=== PATIENT | female | born 1970 | race African-American/Black ===

== ENCOUNTER 2018-03-07 13:01 | Inpatient (IN) | payer OTHER, SELFPAY ==
[2018-03-07] MEDS ORDERED: Succinylcholine Chloride 20 MG/ML 10 ml SYRINGE FS ONE (13:12)
[2018-03-07] MEDS ORDERED: Propofol 1,000 MG/100 ML VIAL IV ONE (13:18)
[2018-03-07 13:28] LABS: #Basophils 0.1 thou/uL (0.0-0.2); #Lymphocytes 2.7 thou/uL (1.20-3.40); #Monocytes 0.6 thou/uL (0.11-0.59); #Neutrophils 6.3 thou/uL (1.40-6.50); %Basophils 0.6 % (0.0-1.0); %Eosinophils 0.2 % (0.0-10.0); %Lymphocytes 27.7 % (21.0-51.0); %Neutrophils 65.4 % (42.0-75.0); Hemoglobin 15.5 g/dL (12.0-16.0); Mean Corpuscular HGB CONC 33.4 g/dL (32.0-36.0); Mean Corpuscular Hemoglobin 30.8 pg (27.0-31.0); Mean Corpuscular Volume 92.2 fL (78.0-98.0); Mean Platelet Volume 7.6 fL (7.4-10.4); Platelet Count 286 thou/uL (130-400); RBC Distribution Width 12.5 % (11.5-14.5); Red Blood Cell (RBC) Count 5.04 mill/uL (4.20-5.40); White Blood Cell (WBC) Count 9.7 thou/uL (4.8-10.8)
[2018-03-07 13:37] LABS: Actual Bicarbonate (HCO3a) 16.6 mEq/L (22-28); Base Excess (BEa) -5.9 mEq/L (-2.0 to +3.0); CO2 Tension 26.1 mmHg (35.0-45.0); Carboxyhemoglobin (COHb) 0.2 gm% (0.0-3.0); Hemoglobin (Hb) 15.5 g/dL (12.0-16.0); O2 Tension (PaO2) 410.8 mmHg (80.0-100.0); pH, Arterial 7.42 (7.35-7.45)
[2018-03-07] MEDS ORDERED: Fentanyl 100 MCG/2 ML VIAL ONE ×2 (13:37→13:45)
[2018-03-07 13:38] LABS: ALV-art Gradient -86.925 (0-20); Analyzer IN Cardio ER; Calcium, Ionized 1.2 mmol/L (1.12-1.30); Potassium - ABG Lab 4.8 mmol/L (3.70-5.30); Puncture Site LR
[2018-03-07] MEDS ORDERED: fentaNYL Citrate/PF 2,000 MCG in Sodium Chloride 0.9% 60 ML IV SCH ×2 (13:46→15:48)
[2018-03-07 13:54] LABS: ALT (SGPT) 20 U/L (8-55); AST (SGOT) 32 U/L (5-34); Acetaminophen Less than 6.0 mcg/mL (10.0-30.0); Albumin 4.5 g/dL (3.5-5.0); Alcohol Less than 10 mg/dL (Less than 10); Alkaline Phosphatase 82 U/L (40-150); Anion Gap 21 mmol/L (10-20); BUN (Urea Nitrogen) 20 mg/dL (7.0-18.7); Bilirubin, Total 0.7 mg/dL (0.2-1.2); CK (CPK) 208 U/L (29-168); Calc. Creatinine Clearance 0 mL/min (70-130); Carbon Dioxide 17 mmol/L (22-29); Chloride 107 mmol/L (98-107); Estimated GFR-MDRD 50; Glucose 131 mg/dL (70-105); Potassium 4.2 mmol/L (3.5-5.1); Protein, Total 8.5 g/dL (6.0-8.3); Salicylate Less than 8.0 mg/dL (15.0-30.0); Sodium 141 mmol/L (136-145)
--- NOTE | 2018-03-07 14:27 | RAD ---
PORTABLE AP CHEST X-RAY: 03/07/2018 HISTORY: Psychiatric evaluation. Altered mental status. The patient is current unresponsive. COMPARISON: None available. FINDINGS: Endotracheal tube is noted in place with the tip overlying the T5 vertebral body and above the level of the melia. A nasogastric tube is also noted in place, which courses into the upper abdomen, but the tip is not imaged. The cardiac silhouette and pulmonary vasculature are within normal limits. T he lungs are clear. The osseous structures are intact. IMPRESSION: 1. Endotracheal tube and nasogastric tube in place. 2. No acute cardiopulmonary process. POS: [facility]
[2018-03-07 14:28] LABS: Bilirubin Moderate (Negative); Blood, Urine Trace (Negative); Clarity CLOUDY (Clear); Glucose, Urine (Dipstick) Negative (Negative); Leukocyte Negative (Negative); Nitrite Negative (Negative); Protein, Urine (Dipstick) 100 mg/dL (Neg-Trace); Specific Gravity, Urine 1.034 (1.002-1.036); pH, Urine 5.5 (5.0-9.0)
[2018-03-07 14:30] LABS: Bacteria/HPF None Seen HPF (None Seen); RBC/HPF 0-3 HPF (0-3)
--- NOTE | 2018-03-07 14:31 | CT ---
HEAD CT WITHOUT CONTRAST: Date: 03/07/18 HISTORY: Altered mental status. COMPARISON: None. TECHNIQUE: Noncontrast head CT is performed from skull base to skull vertex. FINDINGS: No parenchymal hemorrhage. No extra-axial hematoma. No midline shift. Basilar cisterns are patent. Br ain volume, age-appropriate. Cortical yoder-white matter differentiation preserved. Ventricles and sul ci are patent and symmetric. Calvarium is intact. Adequate aeration of the sinuses and mastoid air ce lls. IMPRESSION: No acute intracranial process. POS: [facility]
[2018-03-07 14:32] LABS: Pathc Cast-AUWi Flag 18.46 (0-2.49)
[2018-03-07 14:38] LABS: Amphetamine Not Detected (NotDetected); Barbiturates Screen Not Detected (NotDetected); Benzodiazepine Screen Not Detected (NotDetected); Cocaine Metabolite Screen Not Detected (NotDetected); Medtox Control Line Valid? VALID (VALID); Medtox Reader # READER 4; Methadone Not Detected (NotDetected); Methamphetamine Not Detected (NotDetected); Opiate Screen Not Detected (NotDetected); Oxycodone Screen Not Detected (NotDetected); Phencyclidine (PCP) Not Detected (NotDetected); THC/Cannabinoid Screen Not Detected (NotDetected); Tricyclic Screen Not Detected (NotDetected)
[2018-03-07 14:40] LABS: Renal Epithelial 0-3 HPF (0-3); Transitional Epithelial 0-3 HPF (0-3)
[2018-03-07 14:52] LABS: Pregnancy Test - Urine (BHCG) Negative (Negative); Pregu Control Background? CLEAR/WHITE (CLR/WHITE); Pregu Control Bar Appear? YES (CONTROL BAR); Specific Gravity 1.034 (1.002-1.036)
[2018-03-07] MEDS ORDERED: CCU Electrolyte Replacement 1 EACH IVPB ONE (14:57)
[2018-03-07] MEDS ORDERED: hydrALAZINE 20 MG/ML VIAL SLOW IVP PRN (14:59)
[2018-03-07] MEDS ORDERED: Ventilator Sedation Protocol 1 EACH FS SCH (15:00)
--- NOTE | 2018-03-07 15:11 | PDOC.FPRHP ---
- History of Present Illness Chief Complaint: AMS/bizarre behavior History of Present Illness: This is a47 yo F presenting with CC of bizarre behavior per the . The patient became agitated and EMS administered 4mg ativan and 300mg ketamine. The patient was intubated in the field. History was obtained from . The states that she began acting strange yesterday and "talking jibberish." He states she was sitting on the couch and just gazing at the wall. He states she was talking but "not having meaningful conversation." He states her condition worsened today and that is when he decided to call 911. The patient became agitated as she did not want to go anywhere. The stated that she had an "episode" like this in 1995 at [facility] where she stayed in the psych jorge for about a week. He notes that she took an antipsychotic medication for about 6 mo to 1 year after that episode but has not been on anything since that time. He notes that before a couple days ago, she performs all her ADLs, pays bills, takes care of her and is even pursuing a masters. He notes she has had a couple stressors with career change and her son doing drugs recently. He states that she does not do drugs and hardly ever drinks alcohol. He states she has not felt ill ately and there has not been sick contacts. ED Course: 4mg ativan, 300mg ketamine - Allergies/Adverse Reactions Allergies Allergy/AdvReac Type Severity Reaction Status Date / Time No Allergy Information Allergy Unverified 03/07/18 13:45 Available - History PMHx: HTN PSHx: FHx: mother: committed suicide, but no fam hx of psych issues. Social: rare alcohol use, no tobacco use, no drug use per - Review of Systems ROS unobtainable: due to endotracheal tube - Vital signs BP: 151/105 HR: 98 RR: 12 Tmax: 98.6 Pox: 100% on ventilator Wt: 53.8kg - Physical Exam HEENT: normocephalic and atraumatic Neck: supple, no LAD Heart: RRR, normal S1/S2, pulses present, no edema Lungs: CTAB, good air movement Abdomen: bowel sounds present -Abdomen: mass below level of umbilicus Musculoskeletal: normal structure Skin: no rash/lesions Heme/Lymphatic: no unusual bruising or bleeding, no purpura, no petechia FMR H&P: Results - Labs Result Diagrams: 03/07/18 13:21 03/07/18 13:21 Lab results: WBC 9.7 thou/uL (4.8-10.8) 03/07/18 13:21 Hgb 15.5 g/dL (12.0-16.0) 03/07/18 13:21 Hct 46.5 % (36.0-47.0) 03/07/18 13:21 MCV 92.2 fL (78.0-98.0) 03/07/18 13:21 Plt Count 286 thou/uL (130-400) 03/07/18 13:21 Neutrophils % 65.4 % (42.0-75.0) 03/07/18 13:21 ABG pH 7.42 (7.35-7.45) 03/07/18 13:32 ABG pCO2 26.1 mmHg (35.0-45.0) L 03/07/18 13:32 ABG pO2 410.8 mmHg (80.0-100.0) H 03/07/18 13:32 Sodium 141 mmol/L (136-145) 03/07/18 13:21 Potassium 4.2 mmol/L (3.5-5.1) 03/07/18 13:21 Chloride 107 mmol/L (98-107) 03/07/18 13:21 Carbon Dioxide 17 mmol/L (22-29) L 03/07/18 13:21 BUN 20 mg/dL (7.0-18.7) H 03/07/18 13:21 Creatinine 1.16 mg/dL (0.6-1.1) H 03/07/18 13:21 Glucose 131 mg/dL (70-105) H 03/07/18 13:21 Lactic Acid 2.8 mmol/L (0.5-2.2) H 03/07/18 13:18 Calcium 10.0 mg/dL (7.8-10.44) 03/07/18 13:21 Total Bilirubin 0.7 mg/dL (0.2-1.2) 03/07/18 13:21 AST 32 U/L (5-34) 03/07/18 13:21 ALT 20 U/L (8-55) 03/07/18 13:21 Alkaline Phosphatase 82 U/L (40-150) 03/07/18 13:21 Creatine Kinase 208 U/L (29-168) H 03/07/18 13:21 Serum Total Protein 8.5 g/dL (6.0-8.3) H 03/07/18 13:21 Albumin 4.5 g/dL (3.5-5.0) 03/07/18 13:21 Urine Ketones 80 mg/dL (Negative) H 03/07/18 14:11 Urine Blood Trace (Negative) H 03/07/18 14:11 Urine Nitrite Negative (Negative) 03/07/18 14:11 Ur Leukocyte Esterase Negative (Negative) 03/07/18 14:11 Urine RBC 0-3 HPF (0-3) 03/07/18 14:11 Urine WBC 4-6 HPF (0-3) H 03/07/18 14:11 Ur Squamous Epith Cells 11-20 HPF (0-3) H 03/07/18 14:11 Urine Bacteria None Seen HPF (None Seen) 03/07/18 14:11 - Radiology Interpretation Chest x-ray Status: report reviewed by me Additional comment: no cardiopulm abnormalities CT scan - head Status: report reviewed by me Additional comment: no acute intracranial process FMR H&P: A/P - Problem List (1) Acute psychosis Current Visit: Yes Status: Acute Code(s): F23 - BRIEF PSYCHOTIC DISORDER (2) CLAUDIA (acute kidney injury) Current Visit: Yes Status: Acute Code(s): N17.9 - ACUTE KIDNEY FAILURE, UNSPECIFIED (3) Elevated creatine kinase Current Visit: Yes Status: Acute (4) Hypertension Current Visit: Yes Status: Acute Code(s): I10 - ESSENTIAL (PRIMARY) HYPERTENSION (5) Lactic acidosis Current Visit: Yes Status: Acute Code(s): E87.2 - ACIDOSIS - Plan 47 yo F who presents with acute psychosis, per began having bizarre behavior starting yesterday. We are working her up for any organic causes. Acute psychosis - r/o organic causes - Will f/u results for: test, HIV, US of pelvis - UDS neg, blood tox neg, TSH nml, UA: protein, ketones, hyaline casts, coarse granular; LA 2.8 (elevated), ESR and CRP neg - Will consider anti-NMDA receptor antibody test - Repeat UA tomorrow CLAUDIA - BUN/Cr on admission: 201.16. Will give IVF. - Will trend with AM BMP. Lactic acidosis - ON admission 2.8. Will continue to trend. Will give IVF and monitor vitals. CK - Elevated to 208 on admission. Will trend and give IVF. HTN - Will continue to monitor vitals. PRN Hydralazine for SBP > 180 DISPO: plan to call [facility] when medically stable. CODE: FULL Case discussed with Dr. Bowen FMR H&P: Upper Level - Pertinent history This is a 47 yo F with a remote history of psychosis apprx 20 years ago. At that time she was apparently hospitalized for 2 weeks and may have been on antipsychotics for a short period of time. Since that time she has had no psychiatric issues since that time. Medical hx is significant only for HTN. Per for the past 2-3 days she has been staring into space and speaking nonsensical words. She apparently refused to get dressed this morning and started to tear down the blinds in the house. She also began to hallucinate and experienced delusions. When EMS arrived she became agitated when they tried to bring her to the hospital. She was given 4 of ativan and 300 ketamine then intubated. - Pertinent findings General: intubated and sedated with fentanyl. HEENT: atraumatic normocephalic, pupils sluggish CV: tachycardic. no murmurs Resp CTA b/l Abd soft, bs x4. Suprapubic mass under vertical csection scar noted. Skin: no rash or lesions Labs Cr 1.16 Lactic Acid 2.8 CK 208 UDS neg Serum tox neg - Plan Date/Time: 03/07/18 1509 IYimi DO, have evaluated this patient and agree with findings/plan as outlined by art gallery internship resident. Pertinent changes/additions are listed here. Presumed acute psychosis - currently intubated, will plan to extubate in the am. Continue sedation protocol over night - Work to rule out organic causes. TSH normal, drug/tox screen, ESR/CRP, serum osm. No current signs of infection CLAUDIA vs CKD - IVF, recheck in am Elevated CK - IVF as above Abd mass - most likely uterine adhesion to abd wall related to surgery. Will order US to rule out neoplasm HTN - restart home meds PPx SCD Diet NPO, HH when she is cleared to swallow Code Full Dispo: pt is stable, will likely extubate in am. Attending Addendum - Attending Addendum Date/Time: 03/07/18 2826 I personally evaluated the patient and discussed the management with Dr. Nunez/ Denisa. I agree with the History, Examination, Assessment and Plan documented above with any addition or exceptions noted below. Please see dictated H&P from 03/07/18 for further details.
[2018-03-07] MEDS ORDERED: Potassium Phosphate 9 MMOL in Sodium Chloride 0.9% 100 ML IVPB PRN (15:48)
[2018-03-07] MEDS ORDERED: Potassium Phosphate 12 MMOL in Sodium Chloride 0.9% 250 ML 250 ML IV PRN (15:48)
[2018-03-07] MEDS ORDERED: Propofol BOLUS 1,000 MG/100 ML VIAL IV PRN (15:48)
[2018-03-07] MEDS ORDERED: Potassium Chloride 40 MEQ in Sodium Chloride 0.9% 250 ML 250 ML IVPB PRN (15:48)
[2018-03-07] MEDS ORDERED: Lorazepam 2 MG/ML VIAL SLOW IVP PRN (15:48)
[2018-03-07] MEDS ORDERED: Magnesium 2 GM/NS 0.9% 100 ML 2 GM in Premix Bag 1 BAG IVPB PRN (15:48)
[2018-03-07] MEDS ORDERED: Magnesium Oxide 400 MG TAB PO PRN ×2 (15:48)
[2018-03-07] MEDS ORDERED: Potassium Phosphate 15 MMOL in Sodium Chloride 0.9% 250 ML 250 ML IV PRN (15:48)
[2018-03-07] MEDS ORDERED: Propofol 1,000 MG/100 ML VIAL IV PRN (15:48)
[2018-03-07] MEDS ORDERED: Potassium Chloride 20 MEQ TAB PO PRN (15:48)
[2018-03-07] MEDS ORDERED: Fentanyl BOLUS 250 ML IVPB PRN (15:48)
[2018-03-07] MEDS ORDERED: DISCONTINUE PREVIOUS NARCOTIC PAIN MEDICATIONS AND BENZODIAZEPINES FS SCH (15:48)
[2018-03-07] MEDS ORDERED: CCU ELECTROLYTE REPLACEMENT PROTOCOL FS PRN (15:48)
[2018-03-07] MEDS ORDERED: Potassium Chloride 40 MEQ in Premix Bag 1 BAG IVPB PRN (15:48)
[2018-03-07 15:51] LABS: HIV (1/2) Antibody/Antigen Non-Reactive (NonReactive)
--- NOTE | 2018-03-07 16:01 | HP-2 ---
DATE OF ADMISSION: 03/07/2018 TIME OF ADMISSION: 1445. HISTORY OF PRESENT ILLNESS: This is attending history and physical for patient, Katelyn Aquino. For full history and physical details, please see Dr. Melony Nunez's electronic H and P. Portion s of the history and physical have been repeated by myself and I am in agreement with the assessment and plan as documented. In brief, this patient is a 47-year-old female with a history of previous psychiatric illness of unkn own subtype, who presents to the emergency room via EMS. Per the patient's , he reports that she was in her normal state of health until yesterday when she began speaking inappropriately and "st aring off into space." These symptoms progressed through the night and became more apparent this mor erica along with some agitation. reports that they decided to call EMS and the patient became very agitated and refused to be evaluated. EMS apparently at that time attempted sedation of the pa tient with ketamine and Ativan. Afterwards, per the ER records, the patient's mental status declined until it was necessary to intubate her in the field and transfer her to the hospital at that time. As mentioned above, the overall denies that the patient has had any major medical problems re cently. He does report that approximately 20 years ago, she had some sort of psychiatric illness andi t necessitated inpatient psychiatric consultation. She is not currently nor has she been recently on any psychiatric medications. Otherwise, the reports she has been in good health. He does e ndorse that she has been under a lot of stress recently, but has not been acutely ill. PAST MEDICAL HISTORY: 1. Unspecified psychiatric illness for which the patient is not currently receiving treatment. 2. Hypertension. PAST SURGICAL HISTORY: Unknown, though the patient is noted to have a low pelvic vertical incision o danni the lower abdomen. PERTINENT SOCIAL HISTORY: The patient's denies any recent drug use. REVIEW OF SYSTEMS: Unobtainable due to the patient being intubated. PERTINENT PHYSICAL EXAMINATION: VITAL SIGNS: The patient was afebrile, blood pressure was 130s/80s. At the time of my exam, she was being ventilated on an external ventilator. GENERAL: The patient is sedated on ventilator. No spontaneous movement. EYES: Pupils were constricted and fixed. No eye deviation. Clear sclerae. HEENT: No visible trauma. Endotracheal tube present in the oropharynx as well as orogastric tube, w hich was draining brownish red gastric contents. HEART: Regular rate and rhythm without murmurs, rubs or gallops. LUNGS: Overtly clear; however, there were transmitted ventilator sounds throughout the airways. ABDOMEN: Soft, nontender to palpation. Bowel sounds present, though hypoactive. Abdominal palpatio n revealed a midline firm mass underneath her vertical incision that had palpation texture of the navajo topher. EXTREMITIES: No clubbing, cyanosis or edema. Pulses equal in the upper and lower extremities bilate rally. NEUROLOGIC AND PSYCHIATRIC: Unobtainable as the patient was sedated and on ventilator. PERTINENT LABORATORY STUDIES: 1. CBC showed WBC 9.7, H and H 15.5 and 46.5, platelet count 286,000. 2. BMP showed sodium 141, potassium 4.2, chloride 107, bicarbonate 17 with a calculated anion gap of 17, BUN 20, creatinine 1.16, glucose 131. 3. Lactic acid was 2.8. 4. CK 208. 5. TSH 1.36. 6. UA showed the presence of protein, elevated ketones, trace blood, moderate bilirubin, 4-6 wbc's, 11-20 squamous cells. She also was noted to have both fine and coarse granular casts as well as pres ence of hyaline cast on UA sample. Of note, urine test is negative. 7. Toxicology revealed a negative urine and serum drug screens. 8. ABG showed pH 7.42, pCO2 26.1, pO2 14.8 with a base deficit of 6. A-a gradient negative 86. 9. CT of the brain revealed no acute intracranial process. 10. Chest x-ray showed endotracheal tube and nasogastric tube in place with no acute cardiopulmonary process. ASSESSMENT AND PLAN: This is a 47-year-old female with a history of psychiatric illness of unknown s ubtype presenting with altered mentation and agitation/aggression that necessitated chemical sedation by EMS. 1. Encephalopathy, unknown type at this time. Due to the patient's encephalopathy and altered menta tion, she was intubated for the safety of herself as well as medical providers. The patient will be admitted to the ICU because of this and Pulmonary Medicine will be consulted. We will evaluate for c rimmamon causes of encephalopathy and exclude causes as able. Currently, it does not appear that this i s traumatic in nature. There does not appear to be any major presence of measurable toxins at this t tiera. No evidence of infection, though blood cultures had and will be obtained and followed with. No evidence of inflammatory conditions. The patient does not appear to have a neurologic process or ne oplastic process at this time. Electrolytes are overall normal and there does not appear to be any m ajor endocrine disturbance at this time. History is not consistent with stroke or seizure. ABG is a ppropriate. This could possibly be an acute psychotic break related to her history of psychiatric il lness, though this will not be able to be definitively determined until the patient is extubated and we were able to get more history from her. Likely consult MR once the patient is medically stable. 2. Increased anion gap metabolic acidosis. The patient does have an elevated lactate level. The pa tient will be fluid hydrated and we will trend lactate level and repeat a BMP overnight. Other poten tial in this situation would be other organic acid production or ingestion, though at this time, we c annot determine any of those. 3. Pelvic mass. Urine test is negative. We will obtain a lower pelvic transabdominal ult rasound to further characterize. This could be some sort of just enlarged uterus or a mass-like lesi on that may need further investigation such as a CT scan, but we will await the results of the ultras ound. There is rare association of ovarian malignant processes resulting in altered mentation such a s an autoimmune encephalitis, though this is likely not the case in this patient due to its rarity an d lack of other findings. 4. Presence of urine casts. Currently unknown etiology. She has normal renal function, though that will need to be trended. If her renal function does appear impaired, she will need bilateral renal ultrasounds to further evaluate. Continue fluid hydration and possibly repeat urinalysis in the morn ing. 35 minutes of critical care time spent involved in the care and stabilization of this patient.
[2018-03-07 17:19] VITALS: BMI 20.5
--- NOTE | 2018-03-07 17:28 | ULT ---
TRANSABDOMINAL PELVIC ULTRASOUND: 03/07/18 INDICATION: History of abdominal mass. COMPARISON: None. FINDINGS: There is a large heterogeneous uterus measuring 12.5 x 7.4 x 5.7 cm. There are small suspected fibroi ds seen along the posterior aspect of the uterine body. Endometrial canal is not well seen. One of th e more conspicuous well circumscribed hypoechoic fibroids within posterior uterus measures 3.8 cm. T here is a large echogenic structure seen within the central aspect of the uterus which may reflect a distended endometrial canal versus possibly lipo leiomyoma. Alternatively could reflect a large fat c ontaining ovarian lesion that is situated on top of a poorly visualized uterus. There is a follicular cyst within the right ovary measuring 3.3 cm. the right ovary measures 3.3 x 2. 6 cm. There is normal flow to the right ovary. The left ovary is not well seen. No free fluid is evid ent. IMPRESSION: 1. Large heterogeneous uterus with a large central area of increased echogenicity may reflect pr ominent distention of the endometrial canal, either by the endometrial polyposis, hyperplasia or carc inoma. Alternatively this could reflect prominent lipoleiomyoma. This also could reflect a fatty mass within the left ovary as the left ovary is not visualized. The anatomical detail is heavily limited on this transabdominal examination. Recommend further evaluation with a pelvic MR with and without co ntrast for additional characterization. 2. Right ovary follicular cyst. 3. Nonvisualization of the left ovary. Code T POS: [facility]
[2018-03-07 18:06] LABS: Lactic Acid 1.4 mmol/L (0.5-2.2)
[2018-03-07] MEDS: Lactated Ringer's 1,000 ML IV SCH (18:15)
[2018-03-07] MEDS: Enoxaparin Sodium 60 MG/0.6 ML SYRINGE SC SCH (20:17)
[2018-03-08] MEDS: Lactated Ringer's 1,000 ML IV SCH ×3 (04:51→20:15)
[2018-03-08 05:29] LABS: Lactic Acid 1.4 mmol/L (0.5-2.2)
--- NOTE | 2018-03-08 06:42 | PDOC.FM ---
- Subjective Subjective: Pt found to be resting this morning and requiring moderate sedation. She is arousable and following commands. There were no acute events over night. Nursing without concerns - Objective MAR Reviewed: Yes Vital Signs & Weight: Vital Signs (12 hours) Temp Pulse Resp BP Pulse Ox 03/08/18 06:33 144 H 136/82 03/08/18 06:00 18 03/08/18 04:00 98.8 F 12 03/08/18 02:00 12 03/08/18 00:00 98.5 F 12 03/07/18 22:00 18 03/07/18 20:00 98.5 F 82 18 100 Weight Weight 57.5 kg Most Recent Monitor Data Heart Rate from ECG 86 NIBP 176/103 NIBP BP-Mean 117 Respiration from ECG 14 SpO2 100 I&O: 03/06/18 03/07/18 03/08/18 06:59 06:59 06:59 Intake Total 1115.8 Output Total 840 Balance 275.8 Result Diagrams: 03/08/18 07:24 03/08/18 07:24 <Yimi Crawley - Last Filed: 03/08/18 07:57> - Objective Vital Signs & Weight: Vital Signs (12 hours) Temp Pulse Resp BP 03/08/18 06:33 144 H 136/82 03/08/18 06:00 18 03/08/18 04:00 98.8 F 12 03/08/18 02:00 12 03/08/18 00:00 98.5 F 12 03/07/18 22:00 18 Weight Weight 57.5 kg Most Recent Monitor Data Heart Rate from ECG 78 NIBP 101/65 NIBP BP-Mean 75 Respiration from ECG 18 SpO2 100 I&O: 03/07/18 03/08/18 03/09/18 06:59 06:59 06:59 Intake Total 1115.8 Output Total 840 Balance 275.8 Result Diagrams: 03/08/18 07:24 03/08/18 07:24 <Harjinder Bowen - Last Filed: 03/08/18 09:12> Phys Exam - Physical Examination Pt is intubated and arousable. HEENT: moist MMs, sclera anicteric Neck: no JVD Respiratory: clear to auscultation bilateral Cardiovascular: RRR, no significant murmur Gastrointestinal: soft, non-tender, no distention, positive bowel sounds Palpable mass Musculoskeletal: no edema, pulses present Neurological: moves all 4 limbs Skin: no rash, normal turgor <Yimi Crawley - Last Filed: 03/08/18 07:57> Dx/Plan (1) Acute psychosis Code(s): F23 - BRIEF PSYCHOTIC DISORDER Status: Suspected (2) CLAUDIA (acute kidney injury) Code(s): N17.9 - ACUTE KIDNEY FAILURE, UNSPECIFIED Status: Acute (3) Elevated creatine kinase Status: Acute (4) Hypertension Code(s): I10 - ESSENTIAL (PRIMARY) HYPERTENSION Status: Acute (5) Lactic acidosis Code(s): E87.2 - ACIDOSIS Status: Resolved - Plan Plan: Encephalopathy - Presumed acute psychosis, however working to rule out organic causes. Will consult [facility] today - currently intubated due to agitation in the field. Will likely extubate this am. Pt is arousable and responsive. - TSH normal. drug/tox screen normal. ESR elevated to 39. CRP WNL. serum osm is mildly elevated, this is likely related to dehydration and hyperglycemia. No current signs of infection. CT brain is normal CLAUDIA, resolved - Continue to monitor with am labs Elevated CK - Continue IVF. Renal fxn is at baseline Abd mass - US shows uterine mass. MRI w w/o contrast is recommended by rads. Will consider completing today, however this is more likely appropriate for outpatient work up HTN - do not know her home meds. Will discuss further when patient is extubated. She has been periodically hypertensive over night, however after discussion with nursing this is when she becomes agitated. When she is calm, her BP and HR are WNL PPx SCD Diet NPO, HH when she is cleared to swallow Code Full Dispo: pt is stable. Extubate today and plan to consult [facility] for possible placement. <Yimi Crawley - Last Filed: 03/08/18 07:57> (1) Acute psychosis Code(s): F23 - BRIEF PSYCHOTIC DISORDER Status: Suspected (2) CLAUDIA (acute kidney injury) Code(s): N17.9 - ACUTE KIDNEY FAILURE, UNSPECIFIED Status: Acute (3) Elevated creatine kinase Status: Acute (4) Hypertension Code(s): I10 - ESSENTIAL (PRIMARY) HYPERTENSION Status: Acute (5) Lactic acidosis Code(s): E87.2 - ACIDOSIS Status: Resolved <Harjinder Bowen R - Last Filed: 03/08/18 09:12> Attending Addendum - Attending Addendum Date/Time: 03/08/18909 I personally evaluated the patient and discussed the management with Dr. Crawley. I agree with the History, Examination, Assessment and Plan documented above with any addition or exceptions noted below. Patient currently in process of extubation with Pulmonology. She was intubated yesterday solely due to agitation and aggression that resulted in somnolence from medications given by EMS. She continues to be tachycardic, sinus, but this improves when she is calm. Will extubate and attempt to get more history. So far , no evidence of organic causes of her encephalopathy and considering acute psychosis precipitated by unknown cause. Will consult [facility]. She does have a heterogeneous uterus that could represent benign or malignant process, but this can be further managed in outpatient setting. Further mgmt per conversations with her and [facility] consult. If doing well, can likely transfer from CCU later today. <Harjinder Bowen R - Last Filed: 03/08/18 09:12>
[2018-03-08 07:42] LABS: #Lymphocytes 3.1 thou/uL (1.20-3.40); #Monocytes 1.5 thou/uL (0.11-0.59); #Neutrophils 7.9 thou/uL (1.40-6.50); %Basophils 0.4 % (0.0-1.0); %Eosinophils 0.3 % (0.0-10.0); %Lymphocytes 24.5 % (21.0-51.0); %Monocytes 11.7 % (0.0-10.0); %Neutrophils 63.2 % (42.0-75.0); Hemoglobin 14.5 g/dL (12.0-16.0); Mean Corpuscular HGB CONC 33.8 g/dL (32.0-36.0); Mean Corpuscular Hemoglobin 31.6 pg (27.0-31.0); Mean Corpuscular Volume 93.3 fL (78.0-98.0); Mean Platelet Volume 7.9 fL (7.4-10.4); Platelet Count 259 thou/uL (130-400); RBC Distribution Width 12.6 % (11.5-14.5); White Blood Cell (WBC) Count 12.5 thou/uL (4.8-10.8)
[2018-03-08 07:52] LABS: ALT (SGPT) 16 U/L (8-55); AST (SGOT) 23 U/L (5-34); Albumin 3.9 g/dL (3.5-5.0); Alkaline Phosphatase 71 U/L (40-150); Anion Gap 20 mmol/L (10-20); BUN (Urea Nitrogen) 14 mg/dL (7.0-18.7); Bilirubin, Total 0.7 mg/dL (0.2-1.2); Calc. Creatinine Clearance 74 mL/min (70-130); Calcium 9.1 mg/dL (7.8-10.44); Carbon Dioxide 17 mmol/L (22-29); Chloride 111 mmol/L (98-107); Estimated GFR-MDRD 72; Globulin 3.1 g/dL (2.4-3.5); Glucose 93 mg/dL (70-105); Potassium 4.6 mmol/L (3.5-5.1); Sodium 143 mmol/L (136-145)
[2018-03-08 07:59] LABS: Band 1 % (5-11); Lymphocytes 27 % (21-51); MDiff Complete? YES; Neutrophil 72 % (42-75); RBC Morphology Normal
[2018-03-08] MEDS: Enoxaparin Sodium 60 MG/0.6 ML SYRINGE SC SCH (10:21)
--- NOTE | 2018-03-08 15:06 | CON ---
DATE OF CONSULTATION: 03/08/2018 Katelyn Aquino is a 47-year-old female, is at the bedside, who gets complete care at [facility] for the last 20 years. Apparently, she was agitated yesterday, acting bizarre. She was given large quantity of medicine,[id number] Ativan by EMS. She is intubated in the ER. In the ICU, she was agitated. She was on Diprivan and fentanyl, which were discontinued. She has adequate tidal volume. She was extubated all this process and direct intervention right at the bedside for at least 20 minutes. states that she has had a previous episode of psychosis, in 1995 she was hospitalized and has not been seeing any of the psychiatrists since then. No history of any alcohol or drug abuse or substance abuse. PAST MEDICAL HISTORY: Pertinent for apparently hypertension and abdominal pain. MEDICATIONS: She takes unknown medication. He is going to bring a list from the house. PAST SURGICAL HISTORY: . SOCIAL HISTORY: She worked for [employer] at one time; presently, unemployed. REVIEW OF SYSTEMS: Otherwise, unremarkable. PHYSICAL EXAMINATION: GENERAL: While in the ICU, she is extubated, appears to be in no distress, though still is somewhat encephalopathic. VITAL SIGNS: Pulse 124, blood pressure 130/85, sats 100%, respirations 16. CHEST: Decreased breath sounds, no wheezing. CARDIAC: Normal S1 and S2, no gallops. ABDOMEN: Soft. EXTREMITIES: No edema. NEUROLOGIC: Awake, alert, and responsive. LABORATORY AND X-RAY FINDINGS: Chest x-ray was normal. White count 12,000, H and H 14 and 42, platelet count is normal. Electrolytes are normal. Blood gas : pO2 450. Chemistry is unremarkable. Drug screen was negative. IMPRESSION: 1. Severe metabolic encephalopathy. 2. Previous history of schizophrenia. 3. Abdominal pain. 4. Hypertension. PLAN: Wean and extubated. Continue Ativan and Haldol as needed. She has [facility] consult. Pulmonary Critical Care will follow while in the ICU. Forty-five minutes critical care time. [facility]
[2018-03-08] MEDS ORDERED: Pantoprazole 40 MG VIAL IVP SCH (21:00)
[2018-03-09] MEDS: Lactated Ringer's 1,000 ML IV SCH (00:47)
--- NOTE | 2018-03-09 01:33 | CON ---
DATE OF CONSULTATION: 03/08/2018 REASON FOR CONSULTATION: NG tube returned coffee-ground emesis of 30 mL. HISTORY OF PRESENT ILLNESS: Ms. Alejandra is a 47-year-old female who came in with a psychotic episode an d was given large amounts of ketamine and Ativan by EMS, was ultimately intubated in the emergency ro om, an NG tube was placed. She is now extubated today. Apparently, while the NG tube is down about 30 mL of coffee-ground like material came up to the NG tube. This was gastric altered and I have bee n consulted to evaluate that. History comes from family member at the bedside. Apparently, she christiano me very agitated and paranoid. An EMS was called and resulting in her being sedated, but again she w as also she had to be intubated for airway protection. Apparently, she had an episode like thi s many years ago in 1995. She took some antipsychotic medicine at that time for a while, but then af ter that for about a year, she has only been off everything and had been doing fine until this episod e. The resident's admission note mentions that there were some stressors compared to change recently that may have been precipitated that the patient is now extubated. She denies any upper abdominal p ain, states she has lower abdominal pain. She states that her notes she gets reflux. Apparently, she has got all of her care at [facility] in the past. ALLERGIES: None known. PAST MEDICAL HISTORY: Hypertension. PAST SURGICAL HISTORY: History of section. SOCIAL HISTORY: Rare alcohol use, no drug use, no tobacco use. FAMILY HISTORY: Mother apparently committed suicide per the admission note, but there is no other ps ychiatric history in the family. REVIEW OF SYSTEMS: No history of dysphagia, odynophagia, weight loss, melena, or hematochezia. PRESENT MEDICATIONS: Apresoline, Lactated Ringer's, magnesium oxide, potassium, Protonix 40 IV b.i.d . HOME MEDICATIONS: Tizanidine, trazodone, Protonix, Norvasc. PHYSICAL EXAMINATION: VITAL SIGNS: Temperature 99, pulse 120s, blood pressure 104/70. LUNGS: Clear. ABDOMEN: Nontender in the epigastrium. There is mild tenderness in lower abdomen. LABORATORY AND X-RAY FINDINGS: White count 12,000, hemoglobin 14.5 and 15.5, yesterday, platelet cou nt 259. Sodium 143, potassium 4.6, BUN and creatinine are 14 and 0.8. Liver function tests are norm al. ASSESSMENT: 1. Psychotic episode being worked up and treated by Family Practice at this time. 2. She had very small amount of coffee-ground return in an NG tube. This probably did have traumati c placement. There are no signs of gastrointestinal bleeding. Otherwise, no history of GI bleeding. She is on a PPI at home for reflux. RECOMMENDATIONS: Continue PPI. This can be changed to p.o. it can advance her diet. I will check h er tomorrow make sure she is not bleeding, but if she does appear that when she is discharged, she ca n follow up with regard to issues of reflux with her primary care physician at [facility].
[2018-03-09 05:14] LABS: #Lymphocytes 1.8 thou/uL (1.20-3.40); #Monocytes 0.7 thou/uL (0.11-0.59); %Basophils 0.2 % (0.0-1.0); %Eosinophils 0.5 % (0.0-10.0); %Lymphocytes 21.5 % (21.0-51.0); %Monocytes 7.7 % (0.0-10.0); %Neutrophils 70.1 % (42.0-75.0); Hemoglobin 11.9 g/dL (12.0-16.0); Mean Corpuscular HGB CONC 34.1 g/dL (32.0-36.0); Mean Corpuscular Hemoglobin 31.6 pg (27.0-31.0); Mean Corpuscular Volume 92.7 fL (78.0-98.0); Mean Platelet Volume 8.2 fL (7.4-10.4); Platelet Count 238 thou/uL (130-400); RBC Distribution Width 12.2 % (11.5-14.5); Red Blood Cell (RBC) Count 3.77 mill/uL (4.20-5.40); White Blood Cell (WBC) Count 8.5 thou/uL (4.8-10.8)
[2018-03-09 05:31] LABS: ALT (SGPT) 17 U/L (8-55); AST (SGOT) 26 U/L (5-34); Albumin 3.2 g/dL (3.5-5.0); Alkaline Phosphatase 60 U/L (40-150); Anion Gap 14 mmol/L (10-20); BUN (Urea Nitrogen) 5 mg/dL (7.0-18.7); Bilirubin, Total 0.9 mg/dL (0.2-1.2); Calc. Creatinine Clearance 90 mL/min (70-130); Calcium 8.7 mg/dL (7.8-10.44); Carbon Dioxide 20 mmol/L (22-29); Chloride 110 mmol/L (98-107); Estimated GFR-MDRD 86; Globulin 2.7 g/dL (2.4-3.5); Glucose 89 mg/dL (70-105); Potassium 3.5 mmol/L (3.5-5.1); Protein, Total 5.9 g/dL (6.0-8.3); Sodium 140 mmol/L (136-145)
[2018-03-09] MEDS ORDERED: tiZANidine HCl 4 MG TAB PO PRN (06:44)
--- NOTE | 2018-03-09 07:40 | PDOC.FM ---
- Subjective Subjective: 47 yo F here for acute psychosis. Was extubated yesterday without issue. A&O x4 this am and holds a logical conversation. She complains of L 5th metacarpal pain this am. Otherwise no complaints. Per nursing, pt was speaking nonsensically for the majority of the evening. - Objective MAR Reviewed: Yes Vital Signs & Weight: Vital Signs (12 hours) Temp Pulse Resp BP Pulse Ox 03/08/18 20:44 99.6 F 111 H 18 117/81 94 L 03/08/18 20:00 99.6 F 111 H 18 Weight Weight 60.044 kg Most Recent Monitor Data Heart Rate from ECG 123 NIBP 104/70 NIBP BP-Mean 90 Respiration from ECG 30 SpO2 100 I&O: 03/08/18 03/09/18 03/10/18 06:59 06:59 06:59 Intake Total 1115.8 3622.2 Output Total 840 1400 Balance 275.8 2222.2 Result Diagrams: 03/09/18 04:02 03/09/18 04:02 <Yimi Crawley - Last Filed: 03/09/18 07:39> - Objective Vital Signs & Weight: Vital Signs (12 hours) Temp Pulse Resp BP BP Pulse Ox 03/09/18 08:37 97 150/88 H 03/09/18 08:19 98.9 F 97 18 150/88 H 95 03/09/18 08:00 98.9 F 97 18 95 Weight Weight 60.044 kg Most Recent Monitor Data Heart Rate from ECG 123 NIBP 104/70 NIBP BP-Mean 90 Respiration from ECG 30 SpO2 100 I&O: 03/08/18 03/09/18 03/10/18 06:59 06:59 06:59 Intake Total 1115.8 3622.2 Output Total 840 1400 Balance 275.8 2222.2 Result Diagrams: 03/09/18 04:02 03/09/18 04:02 <Harjinder Bowen - Last Filed: 03/09/18 10:49> Phys Exam - Physical Examination Constitutional: NAD HEENT: PERRLA, moist MMs, sclera anicteric Neck: no JVD, full ROM Respiratory: clear to auscultation bilateral Cardiovascular: RRR, no significant murmur Gastrointestinal: soft, non-tender, positive bowel sounds Palpable uterine mass Musculoskeletal: no edema, pulses present Neurological: non-focal, normal sensation, moves all 4 limbs Lymphatic: no nodes Psychiatric: A&O x 3 Deviation from normal: Delusions of hostiages at home continue Skin: no rash, normal turgor <DenisaYimi - Last Filed: 03/09/18 07:39> Dx/Plan (1) Acute psychosis Code(s): F23 - BRIEF PSYCHOTIC DISORDER Status: Suspected (2) CLAUDIA (acute kidney injury) Code(s): N17.9 - ACUTE KIDNEY FAILURE, UNSPECIFIED Status: Acute (3) Elevated creatine kinase Status: Acute (4) Hypertension Code(s): I10 - ESSENTIAL (PRIMARY) HYPERTENSION Status: Acute (5) Lactic acidosis Code(s): E87.2 - ACIDOSIS Status: Resolved - Plan Plan: Acute psychotic event - Will consult [facility] today, pt medically stable for dc - No organic cause identified CLAUDIA, resolved - Continue to monitor with am labs Elevated CK - PO fluids, renal fxn normal Abd mass - US shows uterine mass. MRI w w/o contrast is recommended by rads, should be completed outpatient HTN - restart home meds Tachycardia - this appears to be present only when pt is agitated. Otherwise vitals are normal Hand pain - This is likely secondary to a traumatic event during her acute psychosis at home. No xr is indicated at this time. No edema, redness or point tenderness PPx SCD Diet Regular Code Full Dispo: pt is stable. likely dc today <Yimi Crawley - Last Filed: 03/09/18 07:39> (1) Acute psychosis Code(s): F23 - BRIEF PSYCHOTIC DISORDER Status: Suspected (2) CLAUDIA (acute kidney injury) Code(s): N17.9 - ACUTE KIDNEY FAILURE, UNSPECIFIED Status: Acute (3) Elevated creatine kinase Status: Acute (4) Hypertension Code(s): I10 - ESSENTIAL (PRIMARY) HYPERTENSION Status: Acute (5) Lactic acidosis Code(s): E87.2 - ACIDOSIS Status: Resolved <Harjinder Bowen - Last Filed: 03/09/18 10:49> Attending Addendum - Attending Addendum Date/Time: 03/09/18 1047 I personally evaluated the patient and discussed the management with Dr. Crawley. I agree with the History, Examination, Assessment and Plan documented above with any addition or exceptions noted below. Patient doing well this morning and denies complaints. She is now medically stable for discharge, awaiting [facility] consult. She explains to me that she thinks a lot of her issues were related to multiple days without sleep due to "sounds in my head" that would not allow her to sleep and racing thoughts. Could be possible manic episode that she had in relation to her previous psychiatric illness that resulted in inpatient hospitalization in the . <Harjinder Bowen - Last Filed: 03/09/18 10:49>
[2018-03-09] MEDS ORDERED: Ferrous Sulfate 325 MG TAB PO SCH (09:00)
[2018-03-09] MEDS ORDERED: Amlodipine 10 MG TAB PO SCH (09:00)
[2018-03-09 13:10] VITALS: BP 137/79; TEMP 99.1
--- NOTE | 2018-03-09 14:32 | PRG ---
DATE OF SERVICE: 03/09/2018 SUBJECTIVE: This morning, she is more awake, more responsive, in no distress. OBJECTIVE: VITAL SIGNS: Blood pressure 150/88, sats are 95% on room air, temperature 98, and respirations 18. CHEST: No wheezing or crackles. CARDIAC: Normal S1 and S2, regular. No gallops. ABDOMEN: Soft, no masses. LABORATORY DATA: Lab and electrolytes are normal. IMPRESSION: 1. Status post acute psychosis. 2. Metabolic encephalopathy. 3. respiratory failure. 4. Renal failure, resolved. Pulmonary Critical Care will follow at a distance. Please call if needed. Eventually [facility] jesus harper
--- NOTE | 2018-03-09 16:38 | EKG ---
Test Reason : Blood Pressure : / mmHG Vent. Rate : 144 BPM Atrial Rate : 144 BPM P-R Int : 000 ms QRS Dur : 076 ms QT Int : 350 ms P-R-T Axes : 023 060 069 degrees QTc Int : 541 ms Sinus tachycardia with short TX Minimal voltage criteria for LVH, may be normal variant Septal infarct , age undetermined T wave abnormality, consider inferior ischemia Abnormal ECG Confirmed by CHEN PETERSON ([id number]), department editor DARIEN DELA CRUZ ([id number]) on 03/09/2018 4:37:27 PM Referred By: Confirmed By:CHEN PETERSON
--- NOTE | 2018-03-10 19:22 | DIS-2 ---
DATE OF ADMISSION: 03/07/2018 DATE OF DISCHARGE: 03/09/2018 ADMITTING ATTENDING: Harjinder Bowen MD DISCHARGE ATTENDING: Harjinder Bowen MD RESIDENT: Yimi Crawley DO CONSULTATIONS: Pulmonology, Jose D Gavin M.D.; GI, Chao Philippe M.D. PROCEDURES: CT brain on 03/07/2018, result of no acute intracranial process. Chest x-ray on 03/07/2018 showing no acute cardiopulmonary process and an ET tube and NG tube in place. PRIMARY DIAGNOSES: 1. Acute encephalopathy. 2. Hypoxic respiratory failure. 3. Acute psychotic event. SECONDARY DIAGNOSES: Hypertension, previous psych history DISCHARGE MEDICATIONS: Norvasc 10 mg p.o. daily, Protonix 40 mg p.o. daily, Trazodone 50 mg p.o. at bedtime, tizanidine 4 mg at bedtime p.r.n. and ferrous sulfate 325 mg p.o. daily. DISCONTINUED MEDICATIONS: None. HOSPITAL COURSE: This is a 47-year-old female who experienced a 2-3 day progressively worsening delusions and hallucinations per her . EMS was called to home where they found to be agitated and aggressive. She was given 4 mg of Ativan and 300 of ketamine. This resulted in significant sedation, the patient required intubation in the field. The patient was admitted with respiratory failure and acute psychosis. Within the first 24 hours, the patient was weaned going from the ventilator and extubated without problem. Initially, the patient remained dilutional. She maintained that there was a hostage situation going on in her home and was speaking in sign language, though she does not know sign language per her . During the remainder of the hospitalization, the patient's psychosis improved significantly. Prior to discharge, she had good insight and although remembered her delusions knew that they were not real. [facility] was consulted and determined she was not appropriate for inpatient; however, should have outpatient followup. DISCHARGE INSTRUCTIONS: 1. Location: Home. 2. Follow up with PCP within a week. Follow up with [facility] within a week. 3. DIET: Regular. 4. Activity: Ad mery. MTDD
--- NOTE | 2018-03-12 14:24 | PQF ---
KIMBERLEY RANGEL JASON MD *r* [id number] CLINICAL DOCUMENTATION CLARIFICATION FORM: POST DISCHARGE Addendum to original discharge summary date: ____ Late entry note date: __ DATE: 03/12/2018 ATTN: DR. HAYWOOD Please exercise your independent, professional judgment in responding to the clarification form. Clinical indicators are provided on the bottom of this form for your review Please check appropriate box(s): Please clarify underlying cause of Encephalopathy [ ] Encephalopathy: Type: [ ] Acute [ ] Subacute [ ] Chronic Etiology: [ ] Hypertensive [ ] Metabolic [ ] Toxic [ ] Hepatic with Coma [ ] Hepatic w/o Coma [ ] Hypoxic [ ] Septic [ ] Drug induced: [ ] Unspecified [ ] in the setting of underlying dementia [ ] Other (please specify) [ ] Transient Alteration of Awareness [ X ] Other diagnosis _acute psychosis, unknown cause [ ] Unable to determine In addition, please specify: Present on Admission (POA): [ X] Yes [ ] No [ ] Unable to determine For continuity of documentation, please document condition throughout progress notes and discharge summary. Thank You. CLINICAL INDICATORS - SIGNS / SYMPTOMS / LABS: Altered mental status / confusion improving once cause is corrected (acute) Metabolic / electrolyte abnormality Hypoxia H&P- encephalopathy, unknown type 03/09 PN & 03/08 Consult- Severe Metabolic encephalopathy 03/08 PN - Encephalopathy, presumed acute psychosis, "however working to rule out organic causes" DS- Acute encephalopathy RISK FACTORS: Hypertension Psychosis TREATMENTS: IV fluids Ativan Haldol (This form is maintained as a part of the permanent medical record) 2014 [employer]. All Rights Reserved Nancie Nuñez, [facility], [facility] HOSPITALCindy [email or web address] [phone] DARLINE
== END 2018-03-09 17:42 | disposition home or self-care (01) | DRG 70 ==
LOC: ERS 13:01 → CCU 16:13 → T4-B 03-08 17:18
PROVIDERS: ADMIT Student in an Organized Health Care Education/Training Program; ATTEND Student in an Organized Health Care Education/Training Program
PROC: 0BH17EZ Insertion of Endotracheal Airway into Trachea, Via Natural or Artificial Opening (ICD-10-PCS; principal; 2018-03-07)
PROC: 5A1945Z Respiratory Ventilation, 24-96 Consecutive Hours (ICD-10-PCS; 2018-03-07)
DX: G93.41 Metabolic encephalopathy (principal); J96.01 Acute respiratory failure with hypoxia; E87.2 Acidosis; F23 Brief psychotic disorder; N17.9 Acute kidney failure, unspecified; I10 Essential (primary) hypertension; R19.00 Intra-abdominal and pelvic swelling, mass and lump, unspecified site; K21.9 Gastro-esophageal reflux disease without esophagitis; M79.643 Pain in unspecified hand; Z78.1 Physical restraint status
CPT/HCPCS: 31500; 36415; 43752; 51702; 70450; 71045; 76856; 80053; 80306; 80307; 81003; 81015; 81025; 82271; 82550; 82805; 83605; 83930; 84443; 85025; 85652; 86140; 87040; 87389; 93005; 94002; 94003; 94760; 96361; 96374; 96376; C9113; J1650; J2704; J3010; J7050

== ENCOUNTER 2018-12-19 21:36 | Emergency (ER) | payer OTHER ==
[2018-12-19] MEDS ORDERED: Lorazepam 2 MG/ML VIAL ONE (21:53)
[2018-12-19 22:12] LABS: #Basophils 0.1 thou/uL (0.0-0.2); #Lymphocytes 3.9 thou/uL (1.20-3.40); #Monocytes 1.4 thou/uL (0.11-0.59); #Neutrophils 7.5 thou/uL (1.40-6.50); %Basophils 0.7 % (0.0-1.0); %Eosinophils 0.2 % (0.0-10.0); %Lymphocytes 30.1 % (21.0-51.0); %Monocytes 11.1 % (0.0-10.0); Hemoglobin 14.8 g/dL (12.0-16.0); Mean Corpuscular HGB CONC 33.7 g/dL (32.0-36.0); Mean Corpuscular Hemoglobin 30.6 pg (27.0-31.0); Mean Corpuscular Volume 90.9 fL (78.0-98.0); Mean Platelet Volume 8.1 fL (7.4-10.4); Platelet Count 331 thou/uL (130-400); RBC Distribution Width 12.3 % (11.5-14.5); Red Blood Cell (RBC) Count 4.82 mill/uL (4.20-5.40); White Blood Cell (WBC) Count 12.9 thou/uL (4.8-10.8)
[2018-12-19 22:18] LABS: BHCG - Serum Negative (NEGATIVE); Pregs Control Background? CLEAR/WHITE (CLR/WHITE); Pregs Control Bar Appear? YES (CONTROL BAR)
[2018-12-19 22:33] LABS: Acetaminophen Less than 6.0 mcg/mL (10.0-30.0); Alcohol Less than 10 mg/dL (Less than 10); Salicylate Less than 8.0 mg/dL (15.0-30.0)
[2018-12-19 22:45] LABS: ALT (SGPT) 37 U/L (8-55); AST (SGOT) 48 U/L (5-34); Albumin 4.2 g/dL (3.5-5.0); Alkaline Phosphatase 78 U/L (40-150); Anion Gap 19 mmol/L (10-20); BUN (Urea Nitrogen) 22 mg/dL (7.0-18.7); Bilirubin, Total 0.4 mg/dL (0.2-1.2); Calc. Creatinine Clearance 0 mL/min (70-130); Calcium 10.2 mg/dL (7.8-10.44); Carbon Dioxide 19 mmol/L (22-29); Chloride 102 mmol/L (98-107); Estimated GFR-MDRD 74; Globulin 3.5 g/dL (2.4-3.5); Glucose 115 mg/dL (70-105); Potassium 3.5 mmol/L (3.5-5.1); Protein, Total 7.7 g/dL (6.0-8.3); Sodium 136 mmol/L (136-145)
[2018-12-19 23:24] LABS: CK (CPK) 730 U/L (29-168)
[2018-12-19 23:49] LABS: Bilirubin Negative (Negative); Blood, Urine Negative (Negative); Clarity CLEAR (Clear); Glucose, Urine (Dipstick) Negative (Negative); Leukocyte Negative (Negative); Nitrite Negative (Negative); Protein, Urine (Dipstick) Negative (Neg-Trace); Specific Gravity, Urine 1.012 (1.002-1.036); Urobilinogen 0.2 mg/dL (0.2-1.0)
[2018-12-20 00:13] LABS: Amphetamine Not Detected (NotDetected); Barbiturates Screen Not Detected (NotDetected); Benzodiazepine Screen Not Detected (NotDetected); Cocaine Metabolite Screen Not Detected (NotDetected); Medtox Control Line Valid? VALID (VALID); Medtox Reader # READER 4; Methadone Not Detected (NotDetected); Methamphetamine Not Detected (NotDetected); Opiate Screen Not Detected (NotDetected); Oxycodone Screen Not Detected (NotDetected); Phencyclidine (PCP) Not Detected (NotDetected); THC/Cannabinoid Screen Not Detected (NotDetected); Tricyclic Screen Not Detected (NotDetected)
--- NOTE | 2018-12-21 15:14 | EKG ---
Test Reason : Blood Pressure : / mmHG Vent. Rate : 125 BPM Atrial Rate : 125 BPM P-R Int : 126 ms QRS Dur : 078 ms QT Int : 334 ms P-R-T Axes : 028 044 012 degrees QTc Int : 482 ms Sinus tachycardia Septal infarct , age undetermined Abnormal ECG Confirmed by CHEN PETERSON ([id number]), sound editor DAV STEINER ([id number]) on 12/21/2018 3:14:06 PM Referred By: Confirmed By:CHEN PETERSON
== END 2018-12-20 11:39 ==
LOC: ERS 21:36
DX: F23 Brief psychotic disorder (principal); I10 Essential (primary) hypertension; F32.9 Major depressive disorder, single episode, unspecified; Z79.899 Other long term (current) drug therapy
CPT/HCPCS: 80053; 80306; 80307; 81003; 82550; 84703; 85025; 93005; 96361; 96374; J2060

== ENCOUNTER 2019-06-05 06:25 | Emergency (ER) | payer OTHER ==
[2019-06-05 07:02] LABS: #Lymphocytes 1.3 thou/uL (1.20-3.40); #Monocytes 0.4 thou/uL (0.11-0.59); %Basophils 0.3 % (0.0-1.0); %Eosinophils 0.1 % (0.0-10.0); %Lymphocytes 12.5 % (21.0-51.0); %Monocytes 3.4 % (0.0-10.0); %Neutrophils 83.7 % (42.0-75.0); Mean Corpuscular HGB CONC 33.6 g/dL (32.0-36.0); Mean Corpuscular Hemoglobin 30.2 pg (27.0-31.0); Mean Corpuscular Volume 89.8 fL (78.0-98.0); Mean Platelet Volume 8.5 fL (7.4-10.4); Platelet Count 366 thou/uL (130-400); RBC Distribution Width 12.2 % (11.5-14.5); White Blood Cell (WBC) Count 10.7 thou/uL (4.8-10.8)
[2019-06-05 07:22] LABS: ALT (SGPT) 29 U/L (8-55); AST (SGOT) 26 U/L (5-34); Albumin 4.6 g/dL (3.5-5.0); Alkaline Phosphatase 104 U/L (40-110); Anion Gap 19 mmol/L (10-20); BUN (Urea Nitrogen) 14 mg/dL (9.8-20.1); Bilirubin, Total 0.7 mg/dL (0.2-1.2); Calc. Creatinine Clearance 0 mL/min (70-130); Carbon Dioxide 26 mmol/L (22-29); Chloride 99 mmol/L (98-107); Estimated GFR-MDRD 65; Globulin 3.7 g/dL (2.4-3.5); Glucose 179 mg/dL (70-105); Protein, Total 8.3 g/dL (6.0-8.3); Sodium 141 mmol/L (136-145)
[2019-06-05 07:23] LABS: Acetaminophen Less than 6.0 mcg/mL (10.0-30.0); Alcohol Less than 10 mg/dL (Less than 10); Salicylate Less than 8.0 mg/dL (15.0-30.0)
[2019-06-05 07:24] LABS: Potassium 2.6 mmol/L (3.5-5.1)
--- NOTE | 2019-06-05 07:45 | CT ---
Head CT without contrast 06/05/2019: COMPARISON: 03/07/2018 HISTORY: Altered mental status TECHNIQUE: Axial CT imaging at 5 mm intervals from vertex through skull base without contrast FINDINGS: Imaged paranasal sinuses/mastoid air cells well-aerated. No displaced calvarial fracture. No intracranial hemorrhage, midline shift, mass effect, or ventricular enlargement. IMPRESSION: No acute findings.
[2019-06-05] MEDS ORDERED: Magnesium 2 GM/50 ML BAG (IN WATER) ONE (08:15)
[2019-06-05] MEDS ORDERED: Lorazepam 2 MG/ML VIAL ONE (10:55)
[2019-06-05 12:07] LABS: Bilirubin Negative (Negative); Blood, Urine Negative (Negative); Clarity Clear (Clear); Glucose, Urine (Dipstick) Normal (Negative); Leukocyte Negative Leu/uL (Negative); Nitrite Negative (Negative); Protein, Urine (Dipstick) 10 mg/dL (Neg-Trace); Urobilinogen Normal mg/dL (Less than 2)
[2019-06-05 12:17] LABS: Amphetamine Not Detected (NotDetected); Barbiturates Screen Not Detected (NotDetected); Benzodiazepine Screen Not Detected (NotDetected); Cocaine Metabolite Screen Not Detected (NotDetected); Medtox Control Line Valid? VALID (VALID); Medtox Reader # READER 1; Methadone Not Detected (NotDetected); Methamphetamine Not Detected (NotDetected); Opiate Screen Not Detected (NotDetected); Oxycodone Screen Not Detected (NotDetected); Phencyclidine (PCP) Not Detected (NotDetected); THC/Cannabinoid Screen Not Detected (NotDetected); Tricyclic Screen Not Detected (NotDetected)
[2019-06-05] MEDS ORDERED: Iopamidol-370 76% 500 ML 1 ML ONE (13:46)
--- NOTE | 2019-06-05 18:11 | CT ---
CT ANGIOGRAM THORAX WITH CONTRAST: (CTA pulmonary angiogram) DATE: 06/05/2019 HISTORY: 49 year old female with tachycardia and elevated d-dimer. TECHNIQUE: IV injection of iodinated contrast. Scan acquisition timing attempted to coincide with iodinated contrast bolus reaching maximal density in pulmonary arteries. 3-D MIP reconstructions. FINDINGS: Pulmonary thromboembolism: None. Lungs: Clear. Pneumothorax: None. Pleural effusion: None. Thoracic aorta: No aneurysm or dissection. Mediastinum: No lymphadenopathy or other mass. [place]: No lymphadenopathy or other mass. IMPRESSION: Normal.
[2019-06-05] MEDS ORDERED: Potassium Chloride 20 MEQ/100 ML PREMIX BAG IVPB SCH (18:15)
== END 2019-06-05 20:24 | disposition short-term general hospital (02) ==
LOC: ERS 06:25
DX: G93.41 Metabolic encephalopathy (principal); R00.0 Tachycardia, unspecified; F32.9 Major depressive disorder, single episode, unspecified; I10 Essential (primary) hypertension
CPT/HCPCS: 36415; 51701; 70450; 71275; 80053; 80306; 80307; 81003; 84484; 85025; 85379; 93005; 96361; 96365; 96367; 96375; A4353; J2060; J3475; J3480; Q9967